=== PATIENT | male | born 2000 | race Caucasian/White ===

== ENCOUNTER 2021-04-26 21:30 | Emergency (ER) | payer OTHER ==
[2021-04-26 21:46] VITALS: TEMP 98.1; BMI 28.8
[2021-04-26 22:48] LABS: BASO % 0.9 % (0-2.0); EOS % 0.8 % (0-4.5); HEMATOCRIT 41.3 % (35.4-49); HEMOGLOBIN 13.5 GM/dL (11.7-16.9); MCH 24.4 pg (25.7-33.7); MCHC 32.6 g/dl (32.0-35.9); MEAN CELL VOLUME 74.7 fl (80-96); MEAN PLT VOLUME 9.3 fl (7.5-11.1); MONO % 9.2 % (3.8-10.2); NEUT % 68.1 % (42.8-82.8); PLATELET COUNT 187 10^3/uL (134-434); RBC 5.53 M/mm3 (4.00-5.60); RDW 13.8 % (11.9-15.9); WHITE BLOOD COUNT 6.7 K/mm3 (4.0-10.0)
[2021-04-26] MEDS ORDERED: hydrOXYzine PAMOATE 25 MG CAPSULE (FP) PO ONE ×2 (22:56→23:14)
[2021-04-26 23:07] LABS: ALBUMIN 4.5 g/dl (3.4-5.0); CALCIUM 8.4 mg/dL (8.5-10.1)
[2021-04-26 23:08] LABS: BLOOD UREA NITROGEN 6.7 mg/dL (7-18)
[2021-04-26 23:12] LABS: BILIRUBIN,TOTAL 0.6 mg/dL (0.2-1); TOT PROT 7.6 g/dl (6.4-8.2)
[2021-04-27 00:43] VITALS: BP 132/74; PULSE 82
== END 2021-04-27 00:44 | disposition home or self-care (01) ==
LOC: JER 21:30
DX: F41.9 Anxiety disorder, unspecified (principal)
CPT/HCPCS: 36415; 71045-TC-FY; 80053; 84443; 85025; 93005; 93010; 99284-25

== ENCOUNTER 2025-04-25 21:14 | Emergency (ER) | payer OTHER ==
[2025-04-25 21:33] VITALS: BP 106/58; PULSE 70; RESP 18; TEMP 98.1; BMI 28.0
== END 2025-04-26 00:10 | disposition home or self-care (01) ==
LOC: JER 21:14 → JERFT 21:14 → JER 04-26 00:10
PROC: 2W3QX1Z Immobilization of Right Lower Leg using Splint (ICD-10-PCS; principal; 2025-04-25)
DX: S92.251A Displaced fracture of navicular [scaphoid] of right foot, initial encounter for closed fracture (principal); X50.1XXA Overexertion from prolonged static or awkward postures, initial encounter; Y93.67 Activity, basketball
CPT/HCPCS: 73610-TC-RT-FY; 99283-25